=== PATIENT | female | born 1965 | race Caucasian/White ===

== ENCOUNTER 2018-11-18 00:11 | Emergency (ER) | payer SELFPAY ==
[2018-11-18] MEDS ORDERED: Sodium Chloride 0.9% 2,000 ML IV ONE (01:00)
--- NOTE | 2018-11-18 01:00 | C.PDOC ---
Time Seen by Provider: 11/18/18 01:00 Chief Complaint (Nursing): Back Pain Past Medical History Vital Signs: Last Vital Signs Temp 101.5 F H 11/18/18 00:26 Pulse 104 H 11/18/18 00:26 Resp 16 11/18/18 00:26 BP 142/95 H 11/18/18 00:26 Pulse Ox 99 11/18/18 00:26 - Medical History PMH: Diabetes, HTN - Social History Hx Tobacco Use: No Hx Alcohol Use: No Hx Substance Use: No - Immunization History Hx Tetanus Toxoid Vaccination: No Hx Influenza Vaccination: No Hx Pneumococcal Vaccination: No ED Course And Treatment O2 Sat by Pulse Oximetry: 99 Disposition Counseled Patient/Family Regarding: Studies Performed, Diagnosis - Disposition Disposition Time: 01:00
--- NOTE | 2018-11-18 01:08 | C.PDOC ---
History Of Present Illness Patient presents with fever, dysuria, right back and flank pain since yesterday. tolerating po. +f/c/n/v. Dull aching, burning right flank pain Time Seen by Provider: 11/18/18 01:00 Chief Complaint (Nursing): Back Pain History Per: Patient History/Exam Limitations: no limitations Onset/Duration Of Symptoms: Hrs Current Symptoms Are (Timing): Still Present Severity: Severe Pain Scale Rating Of: 6 Recent travel outside of the [place]: No Additional History Per: Patient Past Medical History Reviewed: Historical Data, Nursing Documentation, Vital Signs Vital Signs: Last Vital Signs Temp 101.5 F H 11/18/18 00:26 Pulse 104 H 11/18/18 00:26 Resp 16 11/18/18 00:26 BP 142/95 H 11/18/18 00:26 Pulse Ox 99 11/18/18 00:26 - Medical History PMH: Diabetes, HTN Family History: States: No Known Family Hx - Social History Hx Tobacco Use: No Hx Alcohol Use: No Hx Substance Use: No - Immunization History Hx Tetanus Toxoid Vaccination: No Hx Influenza Vaccination: No Hx Pneumococcal Vaccination: No Review Of Systems Constitutional: Positive for: Fever, Chills Respiratory: Negative for: Shortness of Breath Gastrointestinal: Positive for: Nausea, Vomiting, Abdominal Pain Genitourinary: Positive for: Dysuria, Frequency Musculoskeletal: Positive for: Back Pain Skin: Negative for: Rash Neurological: Negative for: Weakness Psych: Negative for: Anxiety Physical Exam - Physical Exam Appears: Non-toxic Skin: Warm, Dry Oral Mucosa: Moist Chest: Symmetrical Cardiovascular: Rhythm Regular Respiratory: No Rales, No Rhonchi, No Wheezing Gastrointestinal/Abdominal: Soft, Tenderness (r flank), No Distention Back: CVA Tenderness (rgiht) Extremity: Normal ROM Extremity: Bilateral: Atraumatic Neurological/Psych: Oriented x3 Gait: Steady ED Course And Treatment - Laboratory Results Result Diagrams: 11/18/18 02:20 11/18/18 02:20 O2 Sat by Pulse Oximetry: 99 Pulse Ox Interpretation: Normal Progress Note: pt developed hives after the iv dye. solumedrol , pepcid and benadryl given. Vitals stable Reevaluation Time: 04:57 Reassessment Condition: Improved Medical Decision Making Medical Decision Making: Upon provider reevaluation patient is feeling better, is medically stable, and requires no further treatment in the ED at this time. Patient will be discharged home with Rx for macrobid, tramadol . Counseling was provided and all questions were answered regarding diagnosis and need for follow up with the referred clinic. There is agreement to discharge plan. Return if symptoms persist or worsen. Disposition Counseled Patient/Family Regarding: Studies Performed, Diagnosis, Need For Followup, Rx Given - Disposition Referrals: Oliver Marcelino MD [Staff Provider] - Disposition: HOME/ ROUTINE Disposition Time: 01:05 Condition: FAIR Additional Instructions: Please return if symptoms recur Prescriptions: Nitrofurantoin Macrocrystals [Macrobid] 1 cap PO BID #14 cap Ondansetron ODT [Zofran ODT] 1 odt PO BID PRN #6 odt PRN Reason: Nausea/Vomiting traMADol [Ultram] 50 mg PO TID PRN #15 tab PRN Reason: Pain, Severe (8-10) Instructions: Urinary Tract Infection, Adult (DC), Renal Colic (DC), Kidney Stones (DC) Forms: Kanga[employer] (Dominican) Print Language: MOHAWK - Clinical Impression Clinical Impression: Kidney stone on right side, Renal colic on right side, UTI (urinary tract infection)
[2018-11-18] MEDS ORDERED: Sodium Chloride 0.9% 1,000 ML ONE (01:30)
[2018-11-18 01:41] LABS: VENOUS BLOOD GAS BASE EXCESS 0.8 mmol/L (0.0-2.0); VENOUS BLOOD GAS PCO2 43 mmHg (40-60); VENOUS BLOOD GAS PO2 26 mm/Hg (30-55); VENOUS BLOOD PH 7.39 (7.32-7.43)
[2018-11-18 02:24] LABS: BASO # 0.1 K/uL (0.0-0.2); BASO % 0.4 % (0.0-2.0); EOS # 0.2 K/uL (0.0-0.7); EOS % 1.4 % (0.0-4.0); HEMOGLOBIN 12.2 g/dL (11.0-16.0); LYMPH % 14.9 % (20.0-40.0); MEAN CELL VOLUME 87.3 fL (81.0-99.0); MEAN CORPUSCULAR HEMOGLOBIN 28.5 pg (27.0-31.0); MEAN CORPUSCULAR HGB CONC 32.6 g/dL (33.0-37.0); MEAN PLATELET VOLUME 10.1 fL (7.2-11.7); MONO # 1.1 K/uL (0.0-0.8); MONO % 8.1 % (0.0-10.0); NEUT # 10.1 K/uL (1.8-7.0); NEUT % 75.2 % (50.0-75.0); RBC 4.27 Mil/uL (3.80-5.20); RED CELL DISTRIBUTION WIDTH 14.4 % (11.5-14.5); WHITE BLOOD COUNT 13.4 K/uL (4.8-10.8)
[2018-11-18 02:34] LABS: SQUAMOUS EPITHIAL 2 /hpf (0-5); URINE BILIRUBIN NEGATIVE (NEGATIVE); URINE BLOOD NEGATIVE (NEGATIVE); URINE CLARITY Hazy (Clear); URINE COLOR Yellow (YELLOW); URINE GLUCOSE (UA) NORMAL (Normal); URINE LEUKOCYTE ESTERASE 2+ Leu/uL (Negative); URINE PROTEIN 1+ mg/dL (NEGATIVE); URINE UROBILINOGEN NORMAL mg/dL (0.2-1.0)
[2018-11-18 02:50] LABS: BLOOD UREA NITROGEN 16 mg/dL (7-17); CALCIUM 9.9 mg/dl (8.6-10.4); GFR NON-AFRICAN AMERICAN 52
[2018-11-18 02:53] LABS: HCG,QUALITATIVE URINE NEGATIVE (NEGATIVE)
[2018-11-18] MEDS ORDERED: Iodixanol 320 MG/ML 100 ML BOTTLE IV ONE (03:03)
[2018-11-18 03:04] LABS: ALB/GLOB RATIO 0.9 (1.0-2.1); ALBUMIN 4.4 g/dL (3.5-5.0); ALT/SGPT 73 U/L (9-52); AST/SGOT 101 U/L (14-36)
[2018-11-18] MEDS ORDERED: DiphenhydrAMINE 50 mg/ml Inj ONE (03:35)
[2018-11-18] MEDS ORDERED: DiphenhydrAMINE 50 mg/ml Inj IVP STA (03:38)
[2018-11-18] MEDS ORDERED: Sodium Chloride 0.9% 1,000 ML IV ONE (03:38)
[2018-11-18] MEDS ORDERED: cefTRIAXone IV 1 gm in Dextros 50 ML IVPB ONE (04:56)
[2018-11-18 05:51] VITALS: BP 147/83; PULSE 75; RESP 18; TEMP 98; O2SAT 99
--- NOTE | 2018-11-18 07:44 | CT ---
Date of service: 11/18/2018 PROCEDURE: CT Abdomen and Pelvis with contrast HISTORY: r flank pain COMPARISON: None. TECHNIQUE: Contrast dose: 100 mL of Visipaque 320 intravenously. Axial and reformatted coronal and sagittal CT images of the abdomen and pelvis were obtained after IV contrast administration. Radiation dose: Total exam DLP = 1179.71 mGy-cm. This CT exam was performed using one or more of the following dose reduction techniques: Automated exposure control, adjustment of the mA and/or kV according to patient size, and/or use of iterative reconstruction technique. FINDINGS: LOWER THORAX: Mild atelectasis noted at the right lung base. No evidence of pleural effusion or pericardial effusion. LIVER: Unremarkable. No gross lesion or ductal dilatation. GALLBLADDER AND BILE DUCTS: Unremarkable. PANCREAS: Unremarkable. No gross lesion or ductal dilatation. SPLEEN: Unremarkable. ADRENALS: Unremarkable. No mass. KIDNEYS AND URETERS: There is mild to moderate right hydronephrosis due to obstructing stone at the right UV junction measures up to 11.6 millimeter in the largest transverse diameter. [id number] right perinephric stranding is noted. There is delayed enhancement of the right kidney compared to the left. The left kidney is grossly unremarkable. The right ureter is not dilated. VASCULATURE: Unremarkable. No aortic aneurysm. No aortic atherosclerotic calcification or mural plaque present. BOWEL: Unremarkable. No obstruction. No gross mural thickening. APPENDIX: Normal appendix. PERITONEUM: Unremarkable. No free fluid. No free air. LYMPH NODES: Unremarkable. No enlarged lymph nodes. BLADDER: Unremarkable. REPRODUCTIVE: Unremarkable. BONES: No acute fracture. OTHER FINDINGS: None. IMPRESSION: Moderate right hydronephrosis due to 11.6 millimeter obstructing stone at the right UV junction. No evidence of acute appendicitis. Preliminary report contains concordant findings was submitted by [facility].
== END 2018-11-18 06:26 | disposition home or self-care (01) ==
LOC: C.ER 00:11
DX: N20.0 Calculus of kidney (principal); N39.0 Urinary tract infection, site not specified; I10 Essential (primary) hypertension; E11.9 Type 2 diabetes mellitus without complications
CPT/HCPCS: 74177; 80053; 81001; 82803; 84703; 85025; 87040; 96361; 96374; 96375; 99285; J1200; J1885; J2405; J2930; J7030; Q9967